=== PATIENT | male | born 1985 | race Caucasian/White ===

== ENCOUNTER 2017-03-13 21:47 | Emergency (ER) | payer OTHER ==
[~2017-03-13 21:47] MED LIST: AUGMENTIN PO; KEFLEX500 M1 PO; PREDNISONE10 MG/DOSE PO; TRAMADOL HCL50 M1 PO
== END 2017-03-13 23:24 | disposition home or self-care (01) ==
LOC: SED 21:47
DX: K61.0 Anal abscess (principal); F17.200 Nicotine dependence, unspecified, uncomplicated
CPT/HCPCS: 99282

== ENCOUNTER 2017-03-16 18:38 | Emergency (ER) | payer OTHER ==
[2017-03-16] MEDS ORDERED: AUGMENTIN PO (19:15)
== END 2017-03-16 21:37 | disposition home or self-care (01) ==
LOC: SED 18:38
DX: K61.0 Anal abscess (principal); F17.210 Nicotine dependence, cigarettes, uncomplicated
CPT/HCPCS: 99283